=== PATIENT | female | born 1990 | race Caucasian/White ===

== ENCOUNTER 2016-09-28 23:08 | Emergency (ER) | payer SELFPAY ==
[~2016-09-28] VITALS: Ht 170.2 cm; Wt 98.0 kg
[~2016-09-28 23:08] MED LIST: AUG875 PO; HYDR-3498 PO; NAPR-260 PO; PRED20TA PO
[2016-09-28 23:11] VITALS: Ht 170.2 cm; Wt 98.0 kg
[2016-09-29] MEDS ORDERED: DIPHENHYDRAMINE 25 MG CAP PO STA (00:49)
[2016-09-29] MEDS ORDERED: METHYLPREDNISOLONE 125 MG INJ IM STA (00:49)
[2016-09-29] MEDS ORDERED: PRED50TA PO (00:53)
[2016-09-29] MEDS ORDERED: BEN50 PO (00:54)
--- NOTE | 2016-09-29 01:13 | ERD ---
ER Documentation Chief Complaint Date/Time DATE: 09/29/16 TIME: 01:10 Chief Complaint generalize body rash/itch x 1 hour. also c/o abd pain HPI This is a 26-year-old female presenting to the emergency room complaining of an red itchy rash since 10 PM. Patient rates as moderate in severity. She denies chest pain, shortness of breath or wheezing. Denies any sore throat. She states that she does have mild uneasiness in her epigastric region with nausea. She states he took Benadryl 25 mg at 10 PM ROS All systems reviewed and are negative except as per history of present illness. Medications Home Meds Active Scripts Diphenhydramine Hcl* (Benadryl*) 50 Mg Cap, 50 MG PO Q6H Y for ITCHING/RASH, # 30 CAP Prov:LUIS COY PA-C 09/29/16 Prednisone* (Prednisone*) 50 Mg Tablet, 50 MG PO DAILY for 4 Days, TAB Prov:LUIS COY PA-C 09/29/16 Prednisone* (Prednisone*) 20 Mg Tab, 60 MG PO DAILY for 5 Days, TAB Prov:JORDAN DOMINGUEZ MD 10/26/15 Naproxen* (Naprosyn*) 500 Mg Tablet, 500 MG PO BID Y for PAIN AND/OR INFLAMMATION, #30 TAB Prov:ABHISHEK PIPER PA-C 02/08/15 Hydrocodone Bit-Acetaminophen* ([place]*) 5-325 Mg Tab, 1 TAB PO QHS Y for PAIN, # 10 TAB Prov:ABHISHEK PIPER PA-C 02/08/15 Amoxicillin-Clavulanate K* (Augmentin*) 875 Mg Tab, 875 MG PO BID for 10 Days Prov:ABHISHEK PIPER PA-C 02/08/15 Allergies Allergies: Coded Allergies: No Known Allergy (Unverified , 09/28/16) PMhx/Soc History of Surgery: Yes ( X 2) Anesthesia Reaction: No Hx Neurological Disorder: No Hx Respiratory Disorders: Yes (asthma) Hx Cardiac Disorders: No Hx Psychiatric Problems: No Hx Miscellaneous Medical Probl: No Hx Alcohol Use: No Hx Substance Use: No Hx Tobacco Use: No Physical Exam Vitals Vital Signs Date Time Temp Pulse Resp B/P Pulse Ox O2 Delivery O2 Flow Rate FiO2 09/28/16 23:11 98.2 88 20 149/72 98 Physical Exam General: WD/WN, in no apparent distress, non-toxic appearing HENT: NC/AT Eyes: Conjunctiva normal Neck: Supple Pulm: Clear to auscultation, normal labored breathing; no wheezing/rales/ rhonchi heard CV: Good capillary refill GI: Non-distended, no guarding Back: No masses Ext: No clubbing, cyanosis, or edema Neuro: Moves on all fours Skin: Erythematous raised papules throughout body Psych: Normal mood Results 24 hrs Current Medications Medications (Trade) Dose Ordered Sig/Karen Route PRN Reason Start Time Stop Time Status Last Admin Dose Admin Methylprednisolone Sodium Succinate (Solu-Medrol) 125 mg ONCE STAT IM 09/29/16 00:49 09/29/16 00:50 DC Diphenhydramine HCl (Benadryl) 25 mg ONCE STAT PO 09/29/16 00:49 09/29/16 00:50 DC Procedures/MDM This is a 26-year-old female presenting to the emergency room complaining of generalized itchy rash and mild abdominal pain since 10 PM, this is likely due to an allergic reaction. Patient's airways are intact, she did not have any wheezing or respiratory distress. Patient was breathing well on room air. Patient's abdominal exam was unremarkable. I will low suspicion for anaphylaxis , cellulitis. In the ED patient was given Solu-Medrol and then by drip. Patient is suitable for outpatient follow-up. Prescription for prednisone and Benadryl was provided. I discussed with patient to return to the ER for any worsening symptoms. She understands and agrees with plan Departure Diagnosis: Primary Impression: Rash Additional Impression: Allergic reaction Condition: Stable Patient Instructions: First Aid: Allergic Reactions, Dermatitis, Non-Specific, Hives Referrals: NO PRIMARY,CARE PHYSICIAN (PCP) [facility] ([facility]) Usted se biswas hecho un examen mdico de control que le indica que no est en yelitza condicin que requiera tratamiento urgente en el Departamento de Emergencia. Un estudio ms profundo y el tratamiento de carrero condicin pueden esperar sin ningn riesgo hasta que usted sea atendida/o en el consultorio de carrero mdico o yelitza cl yael. Es responsabilidad suya arreglar yelitza vandana para el seguimiento del bubba. MANEJO DE CONDICIONES NO URGENTES EN EL FUTURO 1) Si usted tiene un mdico de atencin primaria: Usted debera llamar a carrero mdico de atencin primaria antes de venir al departamento de emergencia. Despus de las horas de consultorio, carrero doctor o carrero asociado/a est disponible por telfono. El mdico o enfermero de sam en el servicio telefnico puede asesorarle por fior medio para atender el problema, o bubba contrario se puede programar yelitza vandana. 2) Si usted no tiene un mdico de atencin primaria: Llame al mdico o clnica de referencia que aparece abajo polly las horas de consultorio para hacer yelitza vandana para que le vean. CLINICAS: [facility] [phone] [facility] [phone] [facility]. [facility] [phone] [facility]. [place] [id number] [phone] [facility]. [place] [id number] [phone] [facility]. [phone] [address] Additional Instructions: Visite a carrero mdico maana para un EXAMEN.Regrese a estas instalaciones si no se mejora yelena esperbamos o yelena le dijimos. [place] toda la medicina jay y yelena se le indic. Regrese a estas instalaciones si no se mejora yelena esperbamos o yelena le dijimos. LUIS COY PA-C Sep 29, 2016 01:13
== END 2016-09-29 01:34 | disposition home or self-care (01) ==
LOC: FTE 23:08
DX: R21 Rash and other nonspecific skin eruption (principal); J45.909 Unspecified asthma, uncomplicated
CPT/HCPCS: 96372; 99284; J2930

== ENCOUNTER 2018-03-26 17:13 | Emergency (ER) | END 2018-03-26 20:25 | disposition left against medical advice (07) ==

== ENCOUNTER 2018-07-13 05:53 | Emergency (ER) | END 2018-07-13 08:06 | disposition home or self-care (01) ==

== ENCOUNTER 2018-11-15 14:46 | Emergency (ER) | payer MEDICAID ==
[~2018-11-15] VITALS: Wt 74.0 kg
[~2018-11-15 14:46] MED LIST changes: -AUG875 PO; +FAMO-96 PO; -HYDR-3498 PO; +HYDR-4011 PO; -NAPR-260 PO; -PRED20TA PO
[2018-11-15 14:49] VITALS: BP 140/65; PULSE 83; RESP 20
[2018-11-15] MEDS ORDERED: CYCL10TA7 PO (15:42)
[2018-11-15] MEDS ORDERED: HYDR-4011 PO (15:42)
[2018-11-15] MEDS ORDERED: NAPR-985 PO (15:42)
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
== END 2018-11-15 16:05 | disposition home or self-care (01) ==
LOC: FTE 14:46
DX: M54.9 Dorsalgia, unspecified (principal); M25.561 Pain in right knee; M25.562 Pain in left knee; J45.909 Unspecified asthma, uncomplicated; M79.601 Pain in right arm; M25.551 Pain in right hip; M25.552 Pain in left hip
CPT/HCPCS: 99283